=== PATIENT | male | born 1995 | race Caucasian/White ===

== ENCOUNTER 2019-01-16 16:23 | Emergency (ER) | payer MEDICAID ==
[~2019-01-16] VITALS: Ht 160 cm; Wt 76.6 kg
[2019-01-16 16:28] VITALS: Ht 160 cm; Wt 76.6 kg
[2019-01-16] MEDS ORDERED: LIDOCAINE 1% (MDV) 10 ML INJ INJ STA (16:58)
[2019-01-16] MEDS ORDERED: DIPHTH/TET/ACEL PERTUSS (ADULT) 0.5 ML VIAL IM* ONE (17:00)
--- NOTE | 2019-01-16 17:18 | ERD ---
ER Documentation Chief Complaint Chief Complaint RIGHT MIDDLE FINGER LAC HPI This is a 23-year-old male with a nonsignificant past medical history presents ED with right middle finger laceration. Patient was at work and was using a table saw when the table saw accidentally cut his dorsal right middle finger. Patient admits to painful range of motion and decreased range of motion. Unsure when last tetanus was. Denies tingling, numbness, lack sensation. Patient is right-hand dominant ROS All systems reviewed and are negative except as per history of present illness. Allergies Allergies: Coded Allergies: No Known Allergy (Unverified , 01/16/19) PMhx/Soc Hx Alcohol Use: No Hx Substance Use: No Hx Tobacco Use: No Smoking Status: Never smoker FmHx Family History: No diabetes Physical Exam Vitals Vital Signs Date Temp Pulse Resp B/P (MAP) Pulse Ox O2 O2 Flow FiO2 Time Delivery Rate 01/16/19 98.7 70 18 111/73 99 16:28 (86) Physical Exam Physical Exam Vitals signs: Reviewed by me. General: Well developed, well nourished, in moderate distress. Patient is awake and alert. Head: Normocephalic, atraumatic. Eyes: Normal conjunctiva, Pupils PERRLA, EOM intact grossly ENT: Pharynx is clear, Moist mucous membranes, external ears, nose and mouth normal Neck: Supple, no masses, lymphadenopathy or JVD Respiratory: Clear to auscultation bilaterally with no wheezing, rhonchi, rales, no distress Cardiovascular: RRR, no murmurs, rubs, or gallops MSK: Upper Extremity -right Skin: There is a deep laceration of the right dorsal lateral middle finger extending through the nailbed roughly 3 cm in length Compartments: Soft Motor: slightly Decreased range of motion with right middle finger flexion due to pain, full active range of motion /wrist/hand Sensation: Intact shoulder/pinky/middle finger/thumb web space Bones: TTP along middle digit Snuffbox: Nontender Joints: No effusion Pulses/Perfusion: 2+ radial, Capillary refill < 2 seconds Back: No midline tenderness Neurologic: Alert and oriented, moving all extremities, normal speech, no focal weakness, no cerebellar signs. Normal mentation Skin: warm and dry, No rash Psych: Normal mood Results 24 hrs Current Medications Medications Dose Sig/Andrea Start Time Status Last (Trade) Ordered Route PRN Stop Time Admin Dose Reason Admin Diphtheria/ 0.5 ml ONCE ONCE 01/16/19 DC 01/16/19 Tetanus/Acell IM* 17:00 17:09 Pertussis 01/16/19 17:01 (Adacel) Lidocaine 10 ml ONCE STAT 01/16/19 DC HCl INJ 16:58 (Lidocaine 01/16/19 17:07 1% (Mdv) 10 ml) 1 tab ONCE ONCE 01/16/19 DC 01/16/19 Acetaminophen PO 17:30 17:08 / 01/16/19 17:31 Hydrocodone Bitart ([place] (5/325)) Lidocaine 5 ml ONCE ONCE 01/16/19 DC (Xylocaine INFIL 17:30 1% (Mpf)) 01/16/19 17:31 Cefazolin 50 ml @ ONCE IVPB 01/16/19 DC 01/16/19 Sodium 100 mls/hr 17:30 17:34 01/16/19 18:00 Procedures/MDM EKG, MONITORS, & DIAGNOSTIC IMAGING: [place] [address] Radiology Main Line: [phone] DIAGNOSTIC IMAGING REPORT Patient: PUMA LOMELI : 1995 Age: 23 Sex: M MR #: [id number] DOS: 01/16/19 1658 Ordering MD: SYLVIE PAUL PA-C Location: [facility] Room/Bed: PROCEDURE: XR Hand. CLINICAL INDICATION: Right hand pain. Laceration of the distal tip of the right 3rd digit. TECHNIQUE: Three views of the right hand were obtained. COMPARISON: No prior studies are available for comparison. FINDINGS: Laceration of the distal tip of the right third digit bony laceration of the distal tuft of the distal phalanx of the right third digit as well. Associated soft tissue swelling and edema. The remaining osseous structures are intact and unremarkable. IMPRESSION: 1. Focal soft tissue laceration with lacerated fracture and bone loss of the distal tuft of the distal phalanx of the right third digit. RPTAT: PP .Tony Weaver MD, MD Date Time Electronically viewed and signed by .Tony Weaver MD, MD on 01/16/2019 18:30 .B/ CC: SYLVIE PAUL PA-C [id number] PROCEDURES: Laceration Repair by me: Anesthesia: 1% lidocaine, digital block Location: Right middle finger Tendon/Joint/Nerves: No injury Foreign body: None detected after copious irrigation and exploration Technique: 2 Simple Interrupted Sutures Complexity: No subcutaneous sutures/mucosal repair/edge excision Post Closure Length: 3 cm Patient's bleeding was easily controlled in the department and there is no indication of anemia. No evidence of compartment syndrome, neurologic injury, vascular injury, open joint, tendon laceration, or foreign body. Patient is appropriate for outpatient follow up. 48 hour wound check. Scar minimization instructions given. ER COURSE: The patient was given [place] and tetanus and IV Ancef The medication was well tolerated and the patient reports improvement in symptoms. The patient was stable throughout ED course. I kept the patient and/or family informed of laboratory and diagnostic imaging results throughout the emergency room course. The patient was promptly evaluated and a treatment plan was devised based on H&P and other data. This plan was discussed with the patient who agreed and had no further questions or concerns prior to discharge. MEDICAL DECISION MAKING: This is a 23-year-old male with a nonsignificant past medical history presents ED with laceration to right middle finger. X-rays were performed and show a focal soft tissue laceration with lacerated fracture and bone loss of the distal tuft of the distal phalanx of the right third digit. I consulted our on-call hand specialist Dr. saini and she advised to close wound along the lateral edges and use Xeroform and put patient in a finger splint. She advised to have patient followed up with hand specialist tomorrow and sent home on antibiotics. Patient was given dose of Ancef in the emergency department today. Patient was given copies of imaging done in the emergency department today. It was stressed to patient to follow-up with hand specialist tomorrow given that this is an open fx. patient was advised to go to all of you [facility]. Laceration was repaired in ED and instructions for post care were discussed. No evidence of compartment syndrome, neurologic injury, vascular injury, open joint, tendon lacerationor foreign body. Return to ED with any worsening symptoms Discussed case with my overseeing physician Dr. Lizarraga and he agrees with this plan DISPOSITION PLAN: We discussed follow up with the patient's primary care doctor within 24 to 48 hours. Patient counseled regarding my diagnostic impression and care plan. Prior to discharge all questions answered. Pt agrees with treatment plan and understands strict return precautions. Precautionary instructions provided including instructions to return to the ER if not improving or for any worsening or changing symptoms or concerns. SPECIALIST FOLLOW UP RECOMMENDED: Hand specialist Patient has been advised to follow up with primary care in 1-2 days. Disclaimer: Inadvertent spelling and grammatical errors are likely due to EHR/dictation software use and do not reflect on the overall quality of patient care. Also, please note that the electronic time recorded on this note does not necessarily reflect the actual time of the patient encounter. Departure Diagnosis: Primary Impression: Open finger fracture Additional Impression: Laceration Condition: Stable Patient Instructions: Fracture, Finger (Open), Laceration, Hand Referrals: TIM OWENS WILLIAM H MD SIMIC, PAUL M MD [facility] () Additional Instructions: Paciente aconseja volver a Departamento de urgencias inmediatamente para sntomas nuevos o que empeoran . Paciente aconseja posteriores con el PCP en 1-2 danielle . Paciente verbaliza la comprehensin y est de acuerdo con el tratamiento y el curso de accin. Si el paciente no tiene ninguna de atencin primaria pueden seguir con [facility] [address] [place] [address] o LAC + [address] [address] SYLVIE PAUL PA-C Jan 16, 2019 17:18
[2019-01-16] MEDS ORDERED: LIDOCAINE 1% (MPF) 5 ML VIAL INFIL ONE (17:30)
[2019-01-16] MEDS ORDERED: HYDROCODONE/APAP (5/325) TAB PO ONE (17:30)
[2019-01-16] MEDS ORDERED: CEFAZOLIN 1 GM/50 ML (PMX) 50 ML IVPB SCH (17:30)
[2019-01-16] MEDS ORDERED: SULF1TAB31 PO (19:47)
[2019-01-16] MEDS ORDERED: CEPH-443 PO (19:47)
[2019-01-16] MEDS ORDERED: HYDR-4011 PO (19:47)
[2019-01-16 20:04] VITALS: BP 128/62; PULSE 65; RESP 17
== END 2019-01-16 20:04 | disposition home or self-care (01) ==
LOC: FTE 16:23
DX: S62.632B Displaced fracture of distal phalanx of right middle finger, initial encounter for open fracture (principal); W27.0XXA Contact with workbench tool, initial encounter; Y92.89 Other specified places as the place of occurrence of the external cause; Z23 Encounter for immunization
CPT/HCPCS: 12002; 73130; 90471; 90715; 96374; J0690; Z7502; Z7610